=== PATIENT | male | born 1970 | race Two or more races ===

== ENCOUNTER 2017-12-31 17:56 | Emergency (ER) | payer SELFPAY ==
[~2017-12-31] VITALS: Ht 165.1 cm; Wt 78.0 kg
[2017-12-31 18:03] VITALS: BP 164/95
== END 2017-12-31 20:00 | disposition left against medical advice (07) ==
LOC: ER 17:56
DX: R07.9 Chest pain, unspecified (principal); Z53.21 Procedure and treatment not carried out due to patient leaving prior to being seen by health care provider